=== PATIENT | female | born 1940 | race Caucasian/White ===

== ENCOUNTER 2018-05-23 08:40 | Day surgery (SDC) | payer MEDICARE, OTHER ==
[~2018-05-23] VITALS: Ht 162.6 cm; Wt 78.2 kg
[~2018-05-23 08:40] MED LIST: CeFAZolin 2 GM/DEXTROSE 50 ML IV ONE; METO50 PO; RINGERS SOLUTION,LACTATED 1,000 ML IV ONE
[2018-05-23] MEDS ORDERED: METO50 PO (09:23)
[2018-05-23] MEDS ORDERED: AMLO2.5T4 PO (09:23)
[2018-05-23] MEDS ORDERED: MOM30 PO (09:23)
[2018-05-23] MEDS ORDERED: LOSA50TA64 PO (09:23)
[2018-05-23] MEDS ORDERED: RIVA20TA PO (09:23)
[2018-05-23] MEDS ORDERED: CLON1 PO (09:23)
[2018-05-23] MEDS ORDERED: RINGERS SOLUTION,LACTATED 1,000 ML IV ONE ×2 (09:30→11:44)
[2018-05-23 09:41] LABS: PROTHROMBIN TIME 10.7 SEC (9.4-11.6)
[2018-05-23] MEDS ORDERED: BUPIVACAINE HCL/PF 0.25% 30 ML VIAL ONE (10:29)
[2018-05-23] MEDS ORDERED: LIDOCAINE 2%/EPI 1:200,000/PF 20 ML VIAL ONE (10:29)
[2018-05-23] MEDS ORDERED: MEPERIDINE-PF 25 MG/ML VIAL IVP PRN (11:30)
[2018-05-23] MEDS ORDERED: FentaNYL CITRATE-PF 100 MCG/2 ML VIAL IVP PRN (11:30)
[2018-05-23] MEDS ORDERED: HYDROmorphone 2 MG/ML SYRINGE IVP PRN (11:30)
[2018-05-23] MEDS ORDERED: HYDROmorphone 2 MG/ML SYRINGE ONE (11:59)
[2018-05-23] MEDS ORDERED: IBUPROFEN 600 MG TABLET PO PRN (12:00)
[2018-05-23] MEDS ORDERED: ACETAMINOPHEN 500 MG TABLET PO PRN (12:00)
[2018-05-23] MEDS ORDERED: HYDROCODONE/ACETAMINOPHEN 5-325 MG TABLET PO PRN (12:00)
[2018-05-23] MEDS ORDERED: ROCURONIUM BROMIDE 10 MG/ML 5 ML VIAL IVP ONE (12:00)
[2018-05-23] MEDS ORDERED: ONDANSETRON HCL 4 MG/2 ML VIAL IVP ONE (12:00)
[2018-05-23] MEDS ORDERED: DEXAMETHASONE SOD PHOS 4 MG/ML VIAL IVP ONE (12:00)
[2018-05-23] MEDS ORDERED: 0.9% SODIUM CHLORIDE 10 ML VIAL IVP ONE (12:00)
[2018-05-23] MEDS ORDERED: PROPOFOL 1% 20 ML VIAL IVP ONE (12:00)
[2018-05-23] MEDS ORDERED: FentaNYL CITRATE-PF 100 MCG/2 ML VIAL IVP ONE (12:00)
[2018-05-23] MEDS ORDERED: EPHEDrine SULFATE 50 MG/ML VIAL IM ONE (12:00)
[2018-05-23] MEDS ORDERED: LIDOCAINE/PF 2% 5 ML VIAL INJ ONE (12:00)
[2018-05-23] MEDS ORDERED: SUCCINYLCHOLINE CHLORIDE 20 MG/ML 10 ML VIAL IVP ONE (12:00)
[2018-05-23] MEDS ORDERED: OXYGEN THERAPY IH SCH (20:00)
== END 2018-05-23 14:20 | disposition home or self-care (01) ==
LOC: SURGERY 08:40
PROVIDERS: ATTEND Surgery
DX: K80.12 Calculus of gallbladder with acute and chronic cholecystitis without obstruction (principal); E03.9 Hypothyroidism, unspecified; K21.9 Gastro-esophageal reflux disease without esophagitis; M19.90 Unspecified osteoarthritis, unspecified site; F41.9 Anxiety disorder, unspecified
CPT/HCPCS: 36415; 47562; 85610; 85730; 88304; 93005; J0330; J0690; J1100; J1170; J2405; J2704; J3010; J3490 ×4; J7120